=== PATIENT | male | born 1995 | race Caucasian/White ===

== ENCOUNTER 2019-06-01 19:41 | Emergency (ER) | payer BC, SELFPAY ==
[2019-06-01 19:55] VITALS: BP 137/85; PULSE 101; RESP 16; TEMP 37.4; O2SAT 97; BMI 42.0
--- NOTE | 2019-06-01 20:20 | ED_ITS ---
HPI - General Adult General: Chief complaint: General Medical Stated complaint: migraine Time Seen by Provider: 06/01/19 20:20 Source: patient Mode of arrival: ambulatory Limitations: no limitations History of Present Illness: HPI narrative: Patient comes in today with right facial pain and tenderness to the right frontal sinus area. Patient reports some improvement with headache at bedtime when lying flat. Patient appears well. Patient appears in mild pain. Patient reports some improvement with pain using acetaminophen. Associated symptoms: Reports headache(s) Review of Systems General: Reports: 10 or more systems reviewed and unremarkable except in HPI and below Neuro: Reports: headache PFSH ED PFSH: Social History Smoking and tobacco status: current every day smoker Physical Exam Const: COMMON NORMALS: no apparent distress and oriented x3 GENERAL APPEARANCE: cooperative HENMT: COMMON NORMALS: normocephalic, external ears normal, EAC's normal and TM's normal bilaterally HEAD & SCALP: normal to inspection and normocephalic FACE & SINUS: normal facial exam NOSE: mucous membranes and turbinates abnormal erythematous GENERAL EAR: hearing not grossly impaired EXTERNAL EAR: Yes external ears normal EXTERNAL AUDITORY CANAL: EAC's normal TYMPANIC MEMBRANE: TM's normal bilaterally MOUTH: oral and palatal mucosa normal THROAT: posterior oropharynx abnormal erythema Eye: COMMON NORMALS: PERRL and EOMs intact bilaterally PUPIL: Yes PERRL Neck/C-Spine: COMMON NORMALS: full ROM and no lymphadenopathy Lymph: LYMPHATIC: no lymphedema noted Chest: COMMONS NORMALS: inspection of chest normal and palpation of chest normal Resp: COMMON NORMALS: normal respiratory effort and clear to auscultation bilaterally AUSCULTATION: clear to auscultation bilaterally Cardio: COMMON NORMALS: regular rate and regular rhythm RATE: regular rate RHYTHM: regular rhythm GI: COMMON NORMALS: normal to inspection, nondistended, normoactive bowel sounds and non-tender : COMMON NORMALS: Yes no CVA tenderness BLADDER/KIDNEY EXAM: Yes no CVA tenderness Back/Pelvis: COMMON NORMALS: no CVA tenderness and thoracic and lumbar spine normal to inspection Extremity: COMMON NORMALS: normal to inspection GENERAL: No edema Neuro: COMMON NORMALS: oriented x3, moves all extremities and no focal motor deficits Psych: COMMON NORMALS: mental status grossly normal and cooperative Skin: COMMON NORMALS: no rashes or lesions noted GENERAL SKIN EXAM: no rashes or lesions noted Course Vital Signs: Vital signs: Vital Signs Temperature 99.3 F 06/01/19 19:55 Pulse Rate 101 H 06/01/19 19:55 Respiratory Rate 16 06/01/19 19:55 Blood Pressure 137/85 06/01/19 19:55 Pulse Oximetry 97 06/01/19 19:55 MDM - General Adult MDM Narrative: Medical decision making narrative: Patient comes in today with complaints of headache for the last 3 days. Exam notes nasal mucosal swelling and erythema. Sinus pain is noted with palpation of the frontal sinuses. Lungs are clear to auscultation. Abdomen soft nontender. Vital signs are normal. Differential diagnosis includes classic headache syndrome, tension headache, migraine, sinusitis, upper respiratory infection. Exam appears that it is a sinus infection recommend treatment at this time with antibiotics and Flonase spray. Encourage plenty of fluids and medications as directed. Patient was given a dose of dexamethasone and Toradol to help abort the headache. Patient was also given a prescription for naproxen for further headache pain relief. Patient reports understanding of care plan and need for follow-up. Discharge Plan Discharge Patient Disposition: Home, Self-Care Clinical Impression: Acute bacterial rhinosinusitis Condition: Stable Prescriptions: New Augmentin 875-125 mg tablet 1 tab PO BID Qty: 20 RF: 0 Flonase Allergy Relief 50 mcg/actuation spray,suspension 1 spray INTRANASAL BID Qty: 15.8 RF: 0 naproxen 500 mg tablet 500 mg PO BID PRN (Reason: pain, headache) Qty: 20 RF: 0 Discharge Orders: Discharge Order (Routine); Ordered 06/01/19 Ordered By: Demario Rivera Referrals: Shaquille Mckeon MD [Primary Care Provider] - Discharge Diet: Usual diet Discharge Activity: Resume usual activity Patient Instructions: Acute Bacterial Rhinosinusitis (ED) Activity Restrictions/Additional Instructions: Drink plenty of fluids Medications as directed Healthy diet and exercise Follow-up with primary care in three days Return to ER for worsening symptoms, or new concerns Coding Level of Care Code ED Psychiatric Arnp for Luciano Frost Exam Comprehensive
[2019-06-01] MEDS: ketorolac 30 mg/mL INJ IM (20:40)
[2019-06-01] MEDS: dexamethasone 10 mg/mL INJ IM (20:40)
[2019-06-01 21:12] VITALS: BP 127/78; PULSE 94; RESP 16; TEMP 36.9; O2SAT 97
== END 2019-06-01 21:12 | disposition home or self-care (01) ==
PROVIDERS: Emergency Provider Nurse Practitioner Family; Family Provider Family Medicine; PCP Family Medicine
DX: J32.9 Chronic sinusitis, unspecified (principal); B96.89 Other specified bacterial agents as the cause of diseases classified elsewhere; F17.200 Nicotine dependence, unspecified, uncomplicated
CPT/HCPCS: 12345; 96372; 99281; 99283; J1100; J1885

== ENCOUNTER 2020-01-05 16:21 | Outpatient (CLI) | payer OTHER, SELFPAY | END 2020-01-05 16:22 | disposition home or self-care (01) | LOC: SPT 16:21 | PROVIDERS: Family Provider Family Medicine; PCP Family Medicine; Visit Provider Orthopaedic Surgery | DX: Z46.89 Encounter for fitting and adjustment of other specified devices (principal); S93.431D Sprain of tibiofibular ligament of right ankle, subsequent encounter; X58.XXXD Exposure to other specified factors, subsequent encounter | CPT/HCPCS: 97760; L1902 ==

== ENCOUNTER 2020-01-11 15:21 | Outpatient (RCR) | payer OTHER, SELFPAY | END 2020-01-25 23:00 | disposition home or self-care (01) | LOC: SPT 15:21 | PROVIDERS: Referring Provider Orthopaedic Surgery; Visit Provider Orthopaedic Surgery | DX: S93.401D Sprain of unspecified ligament of right ankle, subsequent encounter (principal); X58.XXXA Exposure to other specified factors, initial encounter | CPT/HCPCS: 97110; 97161 ==

== ENCOUNTER → 2020-01-26 10:10 | Outpatient (BNVA) | payer OTHER, SELFPAY | PROVIDERS: Visit Provider Orthopaedic Surgery | DX: M25.571 Pain in right ankle and joints of right foot (principal); S93.409A Sprain of unspecified ligament of unspecified ankle, initial encounter; S93.431A Sprain of tibiofibular ligament of right ankle, initial encounter; X58.XXXA Exposure to other specified factors, initial encounter | CPT/HCPCS: 73610 ==

== ENCOUNTER → 2020-04-22 16:58 | Outpatient (BNVA) | payer SELFPAY | PROVIDERS: Visit Provider Nurse Practitioner | DX: S69.92XA Unspecified injury of left wrist, hand and finger(s), initial encounter (principal); W19.XXXA Unspecified fall, initial encounter; M79.642 Pain in left hand | CPT/HCPCS: 73130 ==

== ENCOUNTER → 2020-04-29 10:16 | Outpatient (BNVA) | payer SELFPAY | PROVIDERS: Visit Provider Nurse Practitioner Family | DX: J02.9 Acute pharyngitis, unspecified (principal) | CPT/HCPCS: 87071; 87880 ==

== ENCOUNTER 2020-06-27 18:13 | Emergency (ER) | payer SELFPAY ==
[2020-06-27 18:26] VITALS: BP 146/68; PULSE 75; RESP 18; TEMP 37.1; O2SAT 98; BMI 35.4
--- NOTE | 2020-06-27 18:27 | XRR_ITS ---
PROCEDURE INFORMATION: Exam: XR Chest Exam date and time: 06/27/2020 6:31 PM Age: 25 years old Clinical indication: Left-sided chest pain; Patient HX: Chest pain, left arm numbness; Additional info: Difficulty breathing, cp TECHNIQUE: Imaging protocol: XR of the chest. Views: Frontal portable upright view of the chest. COMPARISON: CR Chest 2 views* [id number] 10/05/2016 1:24 PM FINDINGS: Lungs: The lungs are clear bilaterally. The pulmonary vasculature is normal. Pleural spaces: No pleural effusion. No pneumothorax. Heart/Mediastinum: The heart is normal in size and contour. Mediastinum: Stable. Bones/joints: Stable. XR/XR chest 1V portable [id number] IMPRESSION: No acute cardiopulmonary abnormality identified.
[2020-06-27 19:13] LABS: Basophils # 0.1 10^3/uL (0.0-0.1); Basophils % 0.5 %; Eosinophils # 0.2 10^3/uL (0.0-0.8); Eosinophils % 2.2 %; Hematocrit 47.2 % (42.0-52.0); Hemoglobin 15.8 g/dL (11.7-16.6); Lymphocytes # 3.7 10^3/uL (0.8-4.8); Lymphocytes % 36.4 %; Mean Corpuscular HGB Conc 33.5 g/dL (30.0-36.0); Mean Corpuscular Hemoglobin 29.7 pg (28.0-34.0); Mean Corpuscular Volume 88.7 fL (80-94); Mean Platelet Volume 9.2 fL (7.4-10.4); Monocytes # 0.5 10^3/uL (0.2-0.9); Monocytes % 4.6 %; Neutrophils # 5.74 10^3/uL (1.8-7.7); Neutrophils % 56.1 %; Nucleated Red Blood Cells % 0 %; Platelet Count 361 10^3/cmm (130-400); Red Blood Count 5.32 10^6/uL (4.1-5.3); Red Cell Distribution Width 12.5 % (12.1-15.1); White Blood Count 10.2 10^3/uL (4.0-10.0)
--- NOTE | 2020-06-27 19:17 | PC.NURSE ---
Report received from AC Almonte and care transferred to VIEVK Ramachandran
--- NOTE | 2020-06-27 19:19 | ED_ITS ---
HPI - Chest Pain General: Chief Complaint: Chest Pain Stated Complaint: SHARP CP TODAY W/DIFF BREATHING NOW DULL PAINS Time Seen by Provider: 06/27/20 18:43 History of Present Illness: HPI narrative: 25-year-old male presents with left-sided chest pain has been going on and off for most of the day. Reports that initially it started out just tenderness to palpation the left side now he said pain with deep breaths. The pain seems to radiate to his low left arm and left neck. Is some mild shortness of breath. He denies any cough, fever, chills. Reports that it was initially sharp earlier today but now is more of a dull pain. Associated symptoms: Deny abdominal pain, dyspnea, fever(s), nausea, palpitations or vomiting Review of Systems Const: Denies: fever(s), chills or malaise Eyes: Denies: change in vision ENMT: Denies: throat pain or mouth pain Card: Reports: chest pain; Denies: palpitations or irregular heart rhythm Resp: Denies: dyspnea GI: Denies: abdominal pain, nausea or vomiting : Denies: flank pain Skin/Breast: Denies: rash Neuro: Denies: headache(s) or dizziness PFSH ED PFSH: Social History Smoking and tobacco status: current every day smoker cigarettes Packs smoked per day: 0.2 [ Other cigarette details: 1-3 cigarette per day ] Alcohol intake: current Alcohol intake frequency: few times a month Physical Exam Const: COMMON NORMALS: no acute distress, patient oriented x3 and no limitations GENERAL APPEARANCE: cooperative Resp: COMMON NORMALS: normal respiratory effort and clear to auscultation bilaterally EFFORT & INSPECTION: Yes able to speak in complete sentences AUSCULTATION: clear to auscultation bilaterally Cardio: COMMON NORMALS: regular rate and regular rhythm RATE: regular rate RHYTHM: regular rhythm GI: COMMON NORMALS: Soft to palpation and non-tender PALPATION: Yes Soft to palpation : COMMON NORMALS: Yes no CVA tenderness BLADDER/KIDNEY EXAM: Yes no CVA tenderness Back/Pelvis: COMMON NORMALS: no CVA tenderness Extremity: COMMON NORMALS: normal to inspection and full ROM Neuro: COMMON NORMALS: patient oriented x3 and no focal motor deficits SENSORIUM/ORIENTATION: Yes alert Psych: COMMON NORMALS: mental status grossly normal, normal affect and speech normal SPEECH: Yes normal speech Skin: COMMON NORMALS: no rashes or lesions noted GENERAL SKIN EXAM: no rashes or lesions noted Course Vital Signs: Vital signs: Vital Signs Temperature 98.8 F 06/27/20 18:26 Pulse Rate 63 06/27/20 19:22 Respiratory Rate 16 06/27/20 19:22 Blood Pressure 136/78 06/27/20 19:22 Pulse Oximetry 98 06/27/20 19:22 MDM - Chest Pain MDM Narrative: Medical decision making narrative: Patient with normal EKG, negative troponin. Patient has been having symptoms all day long. As patient has very specific on the left chest wall. Hurts with deep breath. Patient symptoms seem much more consistent with pleurisy than a cardiac in nature. Discussed with him the need for Tylenol ibuprofen help with pain. Patient stable and will be discharged home Lab Data: Labs: Lab Results 06/27/20 06/27/20 06/27/20 Range/Units 19:10 19:10 19:10 WBC 10.2 H (4.0-10.0) 10^3/ uL RBC 5.32 H (4.1-5.3) 10^6/u L Hgb 15.8 (11.7-16.6) g/dL Hct 47.2 (42.0-52.0) % MCV 88.7 (80-94) fL MCH 29.7 (28.0-34.0) pg MCHC 33.5 (30.0-36.0) g/dL RDW 12.5 (12.1-15.1) % Plt Count 361 (130-400) 10^3/c mm MPV 9.2 (7.4-10.4) fL Neut % (Auto) 56.1 % Lymph % (Auto) 36.4 % Mathews % (Auto) 4.6 % Eos % (Auto) 2.2 % Baso % (Auto) 0.5 % Neut # (Auto) 5.74 (1.8-7.7) 10^3/u L Lymph # (Auto) 3.7 (0.8-4.8) 10^3/u L Mathews # (Auto) 0.5 (0.2-0.9) 10^3/u L Eos # (Auto) 0.2 (0.0-0.8) 10^3/u L Baso # (Auto) 0.1 (0.0-0.1) 10^3/u L Nucleated RBC % (a uto) 0 % Nucleated RBCs # 0.0 /100WBC D-Dimer <= 0.27 (0-0.59) ug/mIFE U Sodium 140 (136-145) mmol/L Potassium 3.8 (3.5-5.1) mmol/L Chloride 103 (98-107) mmol/L Carbon Dioxide 26 (22-29) mmol/L Anion Gap 14.8 (5-19) BUN 9 (6-20) mg/dL Creatinine 0.7 (0.7-1.2) mg/dL GFR Calculation 135.3 H (90-130) mL/min Glucose 77 (65-115) mg/dL Calculated Osmolal ity 287 (285-295) mOsm/k g Calcium 9.4 (8.5-10.5) mg/dL Total Bilirubin 1.4 H (0.15-1.2) mg/dL AST 32 (0-40) U/L ALT 56 H (0-41) U/L Alkaline Phosphata se 121 (40-130) IU/L Troponin T Baselin e (0-15) ng/L Total Protein 7.0 (6.6-8.7) g/dL Albumin 5.0 (3.5-5.2) g/dL Globulin 2.0 (1.3-4.6) g/dL 06/27/20 Range/Units 19:10 WBC (4.0-10.0) 10^3/ uL RBC (4.1-5.3) 10^6/u L Hgb (11.7-16.6) g/dL Hct (42.0-52.0) % MCV (80-94) fL MCH (28.0-34.0) pg MCHC (30.0-36.0) g/dL RDW (12.1-15.1) % Plt Count (130-400) 10^3/c mm MPV (7.4-10.4) fL Neut % (Auto) % Lymph % (Auto) % Mathews % (Auto) % Eos % (Auto) % Baso % (Auto) % Neut # (Auto) (1.8-7.7) 10^3/u L Lymph # (Auto) (0.8-4.8) 10^3/u L Mathews # (Auto) (0.2-0.9) 10^3/u L Eos # (Auto) (0.0-0.8) 10^3/u L Baso # (Auto) (0.0-0.1) 10^3/u L Nucleated RBC % (a uto) % Nucleated RBCs # /100WBC D-Dimer (0-0.59) ug/mIFE U Sodium (136-145) mmol/L Potassium (3.5-5.1) mmol/L Chloride (98-107) mmol/L Carbon Dioxide (22-29) mmol/L Anion Gap (5-19) BUN (6-20) mg/dL Creatinine (0.7-1.2) mg/dL GFR Calculation (90-130) mL/min Glucose (65-115) mg/dL Calculated Osmolal ity (285-295) mOsm/k g Calcium (8.5-10.5) mg/dL Total Bilirubin (0.15-1.2) mg/dL AST (0-40) U/L ALT (0-41) U/L Alkaline Phosphata se (40-130) IU/L Troponin T Baselin e 6 (0-15) ng/L Total Protein (6.6-8.7) g/dL Albumin (3.5-5.2) g/dL Globulin (1.3-4.6) g/dL EKG Data^: EKG 1: Attestation: I personally reviewed and interpreted this EKG as follows: EKG interpretation date: 06/27/20 EKG interpretation time: 18:37 Interpretation: Hr 74, pr 161, sinus, normal ekg Discharge Plan Discharge Condition: Stable Prescriptions: No Action Tylenol 325 mg Tablet 325 - 650 mg PO QID PRN (Reason: Pain) RF: 0 Advil 200 mg Tablet 200 - 400 mg PO Q6H PRN (Reason: Pain) RF: 0 Discharge Orders: Discharge ED (Routine); Ordered 06/27/20 Ordered By: Butch Marion Discharge Diet: Usual diet Discharge Activity: Resume usual activity Patient Instructions: Pleurisy (ED) Coding Level of Care Code ED Senior Air Director for Chg Fwd Exam Comprehensive
[2020-06-27 19:22] VITALS: BP 136/78; PULSE 63; RESP 16; O2SAT 98
[2020-06-27 19:25] LABS: D Dimer <= 0.27 ug/mIFEU (0-0.59)
[2020-06-27 19:37] LABS: Alanine Aminotransferase 56 U/L (0-41); Alkaline Phosphatase 121 IU/L (40-130); Anion Gap 14.8 (5-19); Aspartate Amino Transferase 32 U/L (0-40); Blood Urea Nitrogen 9 mg/dL (6-20); Calcium 9.4 mg/dL (8.5-10.5); Carbon Dioxide 26 mmol/L (22-29); Chloride 103 mmol/L (98-107); Glomerular Filtration Rate 135.3 mL/min (90-130); Glucose 77 mg/dL (65-115); Osmolality Calculated 287 mOsm/kg (285-295); Potassium 3.8 mmol/L (3.5-5.1); Sodium 140 mmol/L (136-145); Total Bilirubin 1.4 mg/dL (0.15-1.2)
[2020-06-27 19:40] LABS: Troponin(5th) Baseline 6 ng/L (0-15)
[2020-06-27] MEDS: ketorolac 30 mg/mL INJ IVP (20:07)
[2020-06-27 20:22] VITALS: BP 149/69; PULSE 71; RESP 16; O2SAT 96
== END 2020-06-27 20:22 | disposition home or self-care (01) ==
PROVIDERS: Emergency Provider Student in an Organized Health Care Education/Training Program
DX: R07.9 Chest pain, unspecified (principal); F17.210 Nicotine dependence, cigarettes, uncomplicated
CPT/HCPCS: 71045; 80053; 84484; 85025; 85378; 96374; 99284; J1885

== ENCOUNTER 2022-02-01 20:59 | Emergency (ER) | payer SELFPAY ==
[2022-02-01 21:03] VITALS: BP 137/84; PULSE 78; RESP 16; TEMP 36.6; O2SAT 99
--- NOTE | 2022-02-01 21:06 | ECG_ITS ---
[facility] Test Date: 2022-02-01 Pat Name: Rajendra Phipps Department: Room: Gender: Male [employer]: : 1995 Requested By: Anna Valle Order Number: [id number] Davon MD: Gian Antonio M.D. Measurements Intervals [place] Rate: 77 P: 30 MD: 166 QRS: 41 QRSD: 94 T: 37 QT: 350 QTc: 397 Interpretive Statements SINUS RHYTHM Compared to ECG 10/05/2016 14:31:40 Sinus bradycardia no longer present Electronically Signed On 02-02-2022 11:10:03 [employer]NAGER by Gian Antonio M.D. [id number]
--- NOTE | 2022-02-01 21:12 | XRR_ITS ---
PROCEDURE INFORMATION: Exam: XR Chest Exam date and time: 02/01/2022 10:51 PM Age: 26 years old Clinical indication: Pain; Chest pressure; Additional info: Cp TECHNIQUE: Imaging protocol: Radiologic exam of the chest. Views: 1 view. COMPARISON: CR XR chest 1V portable [id number] 06/27/2020 6:38 PM FINDINGS: Lungs: Unremarkable. No consolidation. Pleural spaces: Unremarkable. No pleural effusion. No pneumothorax. Heart/Mediastinum: Unremarkable. No cardiomegaly. Bones/joints: Unremarkable. XR/XR chest 1V portable [id number] IMPRESSION: No acute findings.
[2022-02-01 21:57] LABS: Basophils # 0.1 10^3/uL (0.0-0.1); Basophils % 0.7 %; Eosinophils # 0.2 10^3/uL (0.0-0.8); Eosinophils % 2.2 %; Hematocrit 46.2 % (42.0-52.0); Hemoglobin 15.6 g/dL (11.7-16.6); Lymphocytes # 4.4 10^3/uL (0.8-4.8); Lymphocytes % 41.6 %; Mean Corpuscular HGB Conc 33.8 g/dL (30.0-36.0); Mean Corpuscular Hemoglobin 30.4 pg (28.0-34.0); Mean Corpuscular Volume 90.1 fl (80-94); Mean Platelet Volume 9.3 fL (7.4-10.4); Monocytes # 0.6 10^3/uL (0.2-0.9); Monocytes % 6.1 %; Neutrophils # 5.15 10^3/uL (1.8-7.7); Neutrophils % 49.1 %; Nucleated Red Blood Cells % 0 %; Platelet Count 345 10^3/cmm (130-400); Red Blood Count 5.13 10^6/uL (4.1-5.3); Red Cell Distribution Width 12.6 % (12.1-15.1); White Blood Count 10.5 10^3/uL (4.0-10.0)
[2022-02-01 22:13] LABS: Troponin(5th) Baseline 6 ng/L (0-15)
[2022-02-01 22:18] LABS: Alanine Aminotransferase 80 U/L (0-41); Albumin Level 4.5 g/dL (3.5-5.2); Alkaline Phosphatase 112 U/L (40-130); Anion Gap 13.1 (5-19); Aspartate Amino Transferase 32 U/L (0-40); Blood Urea Nitrogen 9 mg/dL (6-20); Calcium 9.5 mg/dL (8.5-10.5); Carbon Dioxide 25 mmol/L (22-29); Chloride 105 mmol/L (98-107); Creatinine Clr Calc Pharmacy 216.3609; Globulin 2.1 g/dL (1.3-4.6); Glomerular Filtration Rate 134.3 mL/min (90-130); Glucose 96 mg/dL (65-115); Osmolality Calculated 287 mOsm/kg (285-295); Potassium 4.1 mmol/L (3.5-5.1); Sodium 139 mmol/L (136-145); Total Bilirubin 0.7 mg/dL (0.15-1.2); Total Protein 6.6 g/dL (6.6-8.7)
[2022-02-01] MEDS: lidocaine 2% viscous 15 ML, aluminum-mag hydrox-simethicon 30 ML, sucralfate oral liq 1 GM PO (23:15)
[2022-02-01 23:20] LABS: Urine Appearance Cloudy (CLEAR); Urine Color Yellow (Yellow); pH Urine 8 (5-7)
[2022-02-01 23:21] LABS: Add Urine Culture? No; Add Urine Microscopic? YES; Amorphous Sediment Urine 4+ /hpf; Bacteria Urine TRACE /hpf; Bilirubin Urine Neg (Negative); Blood Urine Neg (Negative); Glucose Urine UA Norm (Normal); Ketones Urine Negative (Negative); Leukocyte Esterase Urine Negative (Negative); Mucus Urine 2+ /hpf; Nitrate Urine Negative (Negative); Protein Urine Neg (Negative); RBC Urine 0-4 /hpf (0-2); Squamous Epithelial Cell Urine 0-4 /hpf (0-5); Sulfosalicylic Acid Urine Negative (Negative); Urobilinogen Urine 1 mg/dL (Negative); WBC Urine 0-4 /hpf (0-5)
[2022-02-01 23:33] LABS: Influenza A by IFA negative (Negative); Influenza B by IFA negative (Negative); SARS Covid-2 Antigen negative (Negative)
[2022-02-01 23:50] LABS: Troponin 5 2HR Delta 0 ABS# (0-10)
--- NOTE | 2022-02-02 00:09 | ED_ITS ---
HPI - Chest Pain General: Chief Complaint: Chest Pain Stated Complaint: CP Time Seen by Provider: 02/01/22 21:06 History of Present Illness: 26 yo male patient presents to [facility] er with chest pain and back pain x 2 weeks. Pt states this pain is intermittent and comes and goes. Pt c/o cough but denies nay fever or SOB. Pt states he has acid reflux but other than that is is healthy. Associated symptoms: Deny abdominal pain, diaphoresis, dyspnea, fever(s), nausea, palpitations, syncope or vomiting Review of Systems Const: Denies: fever(s), chills, body aches, change in appetite, change in weight, fatigue, malaise or diaphoresis Eyes: Denies: change in vision, blurry vision, blind spots, photophobia, eye discomfort, eye discharge, eye redness, floaters or seeing flashes ENMT: Denies: throat pain, uvular edema, enlarged tonsils, odynophagia, hoarseness, mouth pain, swelling of lips/tongue, oral sores, bleeding gums, dental pain, dry mouth, ear or mastoid pain, ear discharge, change in hearing, tinnitus, disequilibrium, nasal discharge, nasal congestion, post nasal drip or sinus pain Card: Reports: chest pain; Denies: palpitations, irregular heart rhythm, edema, swelling of feet/ankles, lightheadedness, syncope, pre-syncope, dyspnea on exertion, orthopnea, leg pain with exertion or acrocyanosis Resp: Denies: dyspnea, productive cough, non-productive cough, wheezing, stridor, pain on inspiration, change in phlegm color, hemoptysis or chest congestion GI: Denies: abdominal pain, nausea, vomiting, hematemesis, dysphagia, diarrhea, constipation, GI cramping, change in bowel habits or rectal pain : Denies: flank pain, dysuria, urinary frequency, urinary urgency, urinary hesitancy or hematuria Musc: Reports: back pain; Denies: neck pain, extremity pain, extremity swelling, joint pain, joint swelling, joint redness, joint warmth or deformity Skin/Breast: Denies: rash, pruritus, erythema, sores, new lesions, changes in skin color or dry skin Neuro: Denies: headache(s), numbness in extremities, weakness in extremities, sensory changes, lack of coordination, difficulty walking, frequent falls, dizziness, vertigo, confusion, behavioral changes, Slurred speech present, difficulty communicating thoughts or seizure-like activity Psych: Denies: anxiety, depression, suicidal ideation or homicidal ideation Endo: Denies: polyuria, polydipsia, tired all the time, cold intolerance, excessive sweating, flushing, hot flashes or heat intolerance Larry/Lymph: Denies: easy bruising, easy bleeding, petechiae, purpura, enlarged lymph nodes or tender lymph nodes All/Imm: Denies: urticaria, throat swelling, tongue swelling, facial swelling, acute wheezing or itchy eyes PFSH ED PFSH: Social History Smoking and tobacco status: current every day smoker cigarettes Packs smoked per day: 0.2 [ Other cigarette details: 1-3 cigarette per day] Alcohol intake: current Alcohol intake frequency: few times a month Physical Exam Const: COMMON NORMALS: no acute distress, patient oriented x3, healthy appearing, alert and well nourished GENERAL APPEARANCE: cooperative, comfortable, well kempt and well developed; not ill appearing ORIENTATION/CONSCIOUSNESS: Yes awake, Yes oriented to person, Yes oriented to place and Yes oriented to time HENMT: COMMON NORMALS: normocephalic, atraumatic, hearing grossly normal bilaterally, external ears normal, EAC's normal, TM's normal bilaterally, Normal external nose present, Normal nasal mucous membranes and turbinates present and moist oral mucous membranes HEAD & SCALP: normal to inspection, normocephalic and atraumatic FACE & SINUS: normal facial exam, sinuses nontender and face symmetric NOSE: Normal external nose present, Normal nares present, Normal nasal mucous membranes and turbinates present, No nasal discharge present and Abnormal external nose present EXTERNAL EAR: Yes external ears normal and Yes mastoids normal EXTERNAL AUDITORY CANAL: EAC's normal TYMPANIC MEMBRANE: TM's normal bilaterally MOUTH: Normal oral and palatal mucosa present, lip normal, tongue normal and Normal salivary glands and ducts present THROAT: no uvular edema Eye: COMMON NORMALS: Equal, round and reactive pupils present, EOMs intact b ilaterally, conjunctivae normal, no scleral icterus and no papilledema GENERAL EYE: appearance normal, both eyes and all related structures EYELID: eyelids normal CONJUNCTIVA: Yes conjunctivae normal SCLERA: sclerae normal CORNEA: Yes corneas normal PUPIL: Yes Equal, round and reactive pupils present DIRECT OPHTHALMOSCOPY: Yes no papilledema Neck/C-Spine: COMMON NORMALS: full ROM, no lymphadenopathy, supple, no meningeal signs, no JVD and Thyroid normal GENERAL: Yes normal visual inspection and Yes trachea midline THYROID: Thyroid normal CERVICAL SPINE: Yes cervical ROM normal Lymph: LYMPHATIC: no lymphadenopathy noted and no lymphedema noted Chest: COMMONS NORMALS: normal inspection of the chest and normal palpation of entire chest wall Resp: COMMON NORMALS: normal respiratory effort, No retractions, No use of accessory muscles and clear to auscultation bilaterally EFFORT & INSPECTION: Yes able to speak in complete sentences and Yes symmetric chest movement AUSCULTATION: clear to auscultation bilaterally Cardio: COMMON NORMALS: no JVD, regular rate and regular rhythm RATE: regular rate RHYTHM: regular rhythm GI: COMMON NORMALS: Normal to inspection, nondistended, normoactive bowel sounds present, Soft to palpation, non-tender, No hepatosplenomegaly present, no masses and no bruits INSPECTION: Yes normal to inspection AUSCULTATION: Yes normoactive bowel sounds PALPATION: Yes Soft to palpation and Yes No hepatosplenomegaly present PERCUSSION: normal to percussion RECTAL EXAM: Yes deferred : COMMON NORMALS: Yes no CVA tenderness BLADDER/KIDNEY EXAM: Yes no CVA tenderness Back/Pelvis: COMMON NORMALS: no CVA tenderness, thoracic and lumbar spine normal to inspection, no thoracic nor lumbar tenderness, thoraco-lumbar ROM normal and straight leg raise negative bilaterally THORACIC SPINE/UPPER BACK: Yes normal to inspection LUMBAR SPINE/LOWER BACK: Yes normal to inspection Extremity: COMMON NORMALS: normal to inspection, full ROM and capillary refill normal GENERAL: Yes normal exam except as noted Neuro: COMMON NORMALS: patient oriented x3, CN's II-XII intact bilaterally, moves all extremities, no focal motor deficits, no sensory deficits noted, deep tendon reflexes 2+ bilaterally and gait normal SENSORIUM/ORIENTATION: Yes alert, Yes oriented to person, Yes oriented to place and Yes oriented to time MENINGEAL SIGNS: Yes no meningeal signs CRANIAL NERVES: Yes CN normal except as noted SPEECH: speech normal GAIT: Yes Normal gait present SENSORY EXAM: Yes extremities MOTOR EXAM: 5/5 motor strength present throughout Psych: COMMON NORMALS: mental status grossly normal, Normal thought process present, cooperative, normal affect, speech normal, activity/motor behavior normal, denies hallucinations, denies homicidal ideation and denies suicidal ideation APPEARANCE: Yes grossly normal and Yes well kempt ATTITUDE: Yes calm ACTIVITY/MOTOR BEHAVIOR: Yes appropriate eye contact SPEECH: Yes normal speech THOUGHT PROCESS: Normal thought process present THOUGHT CONTENT: Yes Normal thought content present ATTENTION/CONCENTRATION: Yes attention grossly intact MEMORY/COGNITION: Yes memory grossly intact INSIGHT: Good insight present (Psych) JUDGEMENT: Good judgement present (Psych) Skin: COMMON NORMALS: no rashes or lesions noted, no wounds, turgor normal, no jaundice, no petechiae and no mottling GENERAL SKIN EXAM: no rashes or lesions noted and turgor normal Course Vital Signs: Vital signs: Vital Signs Temperature 97.8 F 02/01/22 21:03 Pulse Rate 78 02/01/22 21:03 Respiratory Rate 16 02/01/22 21:03 Blood Pressure 137/84 02/01/22 21:03 Pulse Oximetry 99 02/01/22 21:03 Oxygen Delivery Me thod 02/01/22 21:03 MDM - Chest Pain Medical Decision Making Patient is well appearing non toxic and in no acute distress. 26 yo male patient presents to [facility] er with chest pain and back pain x 2 weeks. pt states his chest pain radiates into upper back. pt denies any injury or trauma. Pt states this pain is intermittent and comes and goes. Pt c/o cough but denies nay fever or SOB. Pt states he has acid reflux but other than that is is healthy. Pt was given a gi cocktail and had resolution of symptoms. Labs do not reveal any concerning symotms. I will place patient on protonix and have him follow up with PCP. Pts EKG does not reveal any st elevation or depression nd trop is WNL this making cardiac ischemia unlikely. Lab Data 02/01/22 21:51 02/01/22 21:51 Radiology Impressions Chest X-Ray 02/01/22 21:12 IMPRESSION: No acute findings. Laboratory Results WBC 10.5 10^3/uL (4.0-10.0) H 02/01/22 21:51 RBC 5.13 10^6/uL (4.1-5.3) 02/01/22 21:51 Hgb 15.6 g/dL (11.7-16.6) 02/01/22 21:51 Hct 46.2 % (42.0-52.0) 02/01/22 21:51 MCV 90.1 fl (80-94) 02/01/22 21:51 MCH 30.4 pg (28.0-34.0) 02/01/22 21:51 MCHC 33.8 g/dL (30.0-36.0) 02/01/22 21:51 RDW 12.6 % (12.1-15.1) 02/01/22 21:51 Plt Count 345 10^3/cmm (130-400) 02/01/22 21:51 MPV 9.3 fL (7.4-10.4) 02/01/22 21:51 Neut % (Auto) 49.1 % 02/01/22 21:51 Lymph % (Auto) 41.6 % 02/01/22 21:51 [place] % (Auto) 6.1 % 02/01/22 21:51 Eos % (Auto) 2.2 % 02/01/22 21:51 Baso % (Auto) 0.7 % 02/01/22 21:51 Neut # (Auto) 5.15 10^3/uL (1.8-7.7) 02/01/22 21:51 Lymph # (Auto) 4.4 10^3/uL (0.8-4.8) 02/01/22 21:51 [place] # (Auto) 0.6 10^3/uL (0.2-0.9) 02/01/22 21:51 Eos # (Auto) 0.2 10^3/uL (0.0-0.8) 02/01/22 21:51 Baso # (Auto) 0.1 10^3/uL (0.0-0.1) 02/01/22 21:51 Nucleated RBC % (auto) 0 % 02/01/22 21:51 Nucleated RBCs # 0.0 /100WBC 02/01/22 21:51 Sodium 139 mmol/L (136-145) 02/01/22 21:51 Potassium 4.1 mmol/L (3.5-5.1) 02/01/22 21:51 Chloride 105 mmol/L (98-107) 02/01/22 21:51 Carbon Dioxide 25 mmol/L (22-29) 02/01/22 21:51 Anion Gap 13.1 (5-19) 02/01/22 21:51 BUN 9 mg/dL (6-20) 02/01/22 21:51 Creatinine 0.7 mg/dL (0.7-1.2) 02/01/22 21:51 GFR Calculation 134.3 mL/min (90-130) H 02/01/22 21:51 Glucose 96 mg/dL (65-115) 02/01/22 21:51 Calculated Osmolality 287 mOsm/kg (285-295) 02/01/22 21:51 Calcium 9.5 mg/dL (8.5-10.5) 02/01/22 21:51 Total Bilirubin 0.7 mg/dL (0.15-1.2) 02/01/22 21:51 AST 32 U/L (0-40) 02/01/22 21:51 ALT 80 U/L (0-41) H 02/01/22 21:51 Alkaline Phosphatase 112 U/L (40-130) 02/01/22 21:51 Troponin T Baseline 6 ng/L (0-15) 02/01/22 21:51 Troponin T 120 Minute 6.00 ng/L (0-15) 02/01/22 23:22 Delta Troponin T 0 ABS# (0-10) 02/01/22 23:22 Total Protein 6.6 g/dL (6.6-8.7) 02/01/22 21:51 Albumin 4.5 g/dL (3.5-5.2) 02/01/22 21:51 Globulin 2.1 g/dL (1.3-4.6) 02/01/22 21:51 Urine Color Yellow (Yellow) 02/01/22 23:00 Urine Appearance Cloudy (CLEAR) A 02/01/22 23:00 Urine pH 8 (5-7) H 02/01/22 23:00 Ur Specific [place] 1.010 (1.005-1.030) 02/01/22 23:00 Urine Protein Neg (Negative) 02/01/22 23:00 Urine Glucose (UA) Norm (Normal) 02/01/22 23:00 Urine Ketones Negative (Negative) 02/01/22 23:00 Urine Blood Neg (Negative) 02/01/22 23:00 Urine Nitrate Negative (Negative) 02/01/22 23:00 Urine Bilirubin Neg (Negative) 02/01/22 23:00 Prot Sulfosalicylic Acd Negative (Negative) 02/01/22 23:00 Urine Urobilinogen 1 mg/dL (Negative) H 02/01/22 23:00 Ur Leukocyte Esterase Negative (Negative) 02/01/22 23:00 Urine RBC 0-4 /hpf (0-2) H 02/01/22 23:00 Urine WBC 0-4 /hpf (0-5) H 02/01/22 23:00 Ur Squamous Epith Cells 0-4 /hpf (0-5) H 02/01/22 23:00 Amorphous Sediment 4+ /hpf 02/01/22 23:00 Urine Bacteria Trace /hpf (NONE) 02/01/22 23:00 Urine Mucus 2+ /hpf 02/01/22 23:00 Influenza Type A Ag negative (Negative) 02/01/22 23:00 Influenza Type B Ag negative (Negative) 02/01/22 23:00 SARS-CoV-2 Ag (Rapid) negative (Negative) 02/01/22 23:00 Discharge Plan Discharge Patient Disposition: Home Clinical Impression: Chest pain due to GERD Condition: Stable Prescriptions: New Protonix 40 mg tablet,delayed release (DR/EC) 40 mg PO DAILY 28 Days Qty: 90 0RF No Action sulfamethoxazole-trimethoprim [Bactrim DS] 800-160 mg tablet 1 tab PO BID 10 Days Qty: 20 0RF Tylenol 325 mg Tablet 325 - 650 mg PO QID PRN (Reason: Pain) Advil 200 mg Tablet 200 - 400 mg PO Q6H PRN (Reason: Pain) Discharge Orders: Discharge ED (Routine); Ordered 02/02/22 Ordered By: Anna Valle Discharge Diet: Advance as tolerated Discharge Activity: Increase activity as tolerated Patient Instructions: Opioid Safety, Pain Management Activity Restrictions/Additional Instructions: Please take medications as prescribed Please avoid spicy or fatty fried foods Please return to the ER with any worsening of pain or symptoms Coding Level of Care Code ED Resin Painter for Luciano Frost
[2022-02-02 01:09] VITALS: BP 133/70; PULSE 74; RESP 18; O2SAT 99
== END 2022-02-02 01:09 | disposition home or self-care (01) ==
PROVIDERS: Emergency Provider Registered Nurse
DX: K21.9 Gastro-esophageal reflux disease without esophagitis (principal); Z20.822 Contact with and (suspected) exposure to COVID-19; F17.210 Nicotine dependence, cigarettes, uncomplicated
CPT/HCPCS: 36415; 71045; 80053; 81001; 84484; 85025; 87426; 87804; 93005; 99285

== ENCOUNTER 2022-03-04 23:53 | Inpatient (IN) | payer SELFPAY ==
[2022-03-05 00:02] VITALS: BP 139/90; PULSE 103; RESP 16; TEMP 36.7; O2SAT 98; BMI 36.6
[2022-03-05 01:23] LABS: Basophils # 0.1 10^3/uL (0.0-0.1); Basophils % 0.6 %; Eosinophils # 0.1 10^3/uL (0.0-0.8); Eosinophils % 0.8 %; Hematocrit 47.3 % (42.0-52.0); Lymphocytes # 2.6 10^3/uL (0.8-4.8); Lymphocytes % 24.1 %; Mean Corpuscular HGB Conc 33.8 g/dL (30.0-36.0); Mean Corpuscular Hemoglobin 30.6 pg (28.0-34.0); Mean Corpuscular Volume 90.4 fl (80-94); Mean Platelet Volume 9.1 fL (7.4-10.4); Monocytes # 0.5 10^3/uL (0.2-0.9); Monocytes % 4.5 %; Neutrophils % 69.7 %; Nucleated Red Blood Cells % 0 %; Platelet Count 343 10^3/cmm (130-400); Red Blood Count 5.23 10^6/uL (4.1-5.3); Red Cell Distribution Width 12.4 % (12.1-15.1); White Blood Count 10.6 10^3/uL (4.0-10.0)
[2022-03-05 01:35] LABS: Amphetamines Screen Urine Negative (Negative); Barbiturates Screen Urine Negative (Negative); Benzodiazepines Screen Urine Negative (Negative); Cocaine Screen Urine Negative (Negative); Opiate Screen Urine Negative (Negative); PCP Screen Urine Negative (Negative); THC Screen Urine Negative (Negative)
[2022-03-05 01:40] LABS: Alanine Aminotransferase 119 U/L (0-41); Albumin Level 4.4 g/dL (3.5-5.2); Alkaline Phosphatase 115 U/L (40-130); Aspartate Amino Transferase 48 U/L (0-40); Blood Urea Nitrogen 10 mg/dL (6-20); Calcium 9.4 mg/dL (8.5-10.5); Carbon Dioxide 24 mmol/L (22-29); Chloride 102 mmol/L (98-107); Globulin 2.4 g/dL (1.3-4.6); Glomerular Filtration Rate 160.4 mL/min (90-130); Glucose 108 mg/dL (65-115); Osmolality Calculated 280 mOsm/kg (285-295); Sodium 135 mmol/L (136-145); Total Bilirubin 0.5 mg/dL (0.15-1.2); Total Protein 6.8 g/dL (6.6-8.7)
[2022-03-05 01:43] LABS: Acetaminophen < 5.0 ug/mL (10-30); Alcohol Level < 10 mg/dL (0-10); Salicylate < 0.3 mg/dL (3-10)
[2022-03-05 01:46] LABS: Add Urine Culture? No; Add Urine Microscopic? YES; Bacteria Urine TRACE /hpf; Bilirubin Urine Neg (Negative); Blood Urine Neg (Negative); Glucose Urine UA Norm (Normal); Ketones Urine 1+ (Negative); Leukocyte Esterase Urine Trace (Negative); Mucus Urine 3+ /hpf; Nitrate Urine Negative (Negative); Protein Urine Neg (Negative); RBC Urine 0-4 /hpf (0-2); Squamous Epithelial Cell Urine 0-4 /hpf (0-5); Urine Appearance Clear (CLEAR); Urine Color Yellow (Yellow); Urobilinogen Urine 1 mg/dL (Negative); WBC Urine 0-4 /hpf (0-5); pH Urine 5 (5-7)
[2022-03-05 02:35] VITALS: BP 146/87; PULSE 83; RESP 18; O2SAT 97
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
[2022-03-05 03:10] VITALS: BP 132/76; PULSE 77; RESP 18; TEMP 36.6; O2SAT 95
[2022-03-05] MEDS: hyDROXYzine 25 mg Capsule 50 MG PO (03:47)
[2022-03-05 06:00] VITALS: RESP 18
[2022-03-05] MEDS: nicotine 2 mg Gum BUCCAL (09:44)
[2022-03-05] MEDS: pantoprazole DR 40 mg Tablet PO (09:44)
--- NOTE | 2022-03-05 13:22 | W.ED.PSYCHS ---
HPI - Psych General: Chief Complaint: Psychiatric Symptoms Stated Complaint: SI, psych eval Time Seen by Provider: 03/05/22 00:07 Source: patient History of Present Illness: 26yo male with no hx of psychiatric hospitalization or treatment for depression. He says that back in Apr or May he attempted suicide by handing with a belt in his closet but the closet shelf broke. Of late he has been stressed over finances, growing more depressed, waking up multiple times a night. He had suicidal thoughts this evening, and thought about using his pistol. He came here instead for help. He denies recent medical illness otherwise. MD complaint: suicidal ideation and feels depressed Onset (ago): day(s) Duration: constant and getting worse History of same: Yes Relieving factors: none Exacerbating factors: none Context: significant life stressor Associated symptoms: Reports depression and suicidal ideation; Deny auditory hallucinations or visual hallucinations Treatments prior to arrival: none If self harm: admits thoughts of self harm Review of Systems Const: Denies: fever(s), chills or body aches Eyes: Denies: change in vision Card: Denies: chest pain or palpitations Resp: Denies: dyspnea, productive cough, non-productive cough or wheezing GI: Denies: abdominal pain, nausea, vomiting, diarrhea or hematochezia Skin/Breast: Denies: rash Neuro: Denies: headache(s), weakness in extremities, dizziness or confusion Psych: Reports: depression and suicidal ideation; Denies: visual hallucinations or auditory hallucinations PFSH ED PFSH: Social History Smoking and tobacco status: current every day smoker cigarettes Packs smoked per day: 0.2 [ Other cigarette details: 1-3 cigarette per day] Alcohol intake: current Alcohol intake frequency: few times a month Physical Exam Const: GENERAL APPEARANCE: cooperative; not ill appearing and not frail appearing HENMT: COMMON NORMALS: normocephalic, atraumatic and Normal external nose present HEAD & SCALP: normocephalic and atraumatic FACE & SINUS: normal facial exam and face symmetric NOSE: Normal external nose present Eye: COMMON NORMALS: Equal, round and reactive pupils present and EOMs intact bilaterally PUPIL: Yes Equal, round and reactive pupils present Neck/C-Spine: GENERAL: Yes trachea midline Chest: CHEST: Yes Symmetrical chest wall rise Resp: COMMON NORMALS: normal respiratory effort, No retractions, No use of accessory muscles and clear to auscultation bilaterally AUSCULTATION: clear to auscultation bilaterally Cardio: COMMON NORMALS: regular rate and regular rhythm RATE: regular rate RHYTHM: regular rhythm GI: COMMON NORMALS: Normal to inspection, nondistended, normoactive bowel sounds present Extremity: COMMON NORMALS: no pedal edema Neuro: [place] COMA SCALE: document GCS findings [place] coma scale eye opening: Spontaneous [place] coma scale verbal response: Orientated [place] coma scale motor response: Obey commands [place] coma scale total score: 15 SENSORY EXAM: Yes extremities (intact) Psych: COMMON NORMALS: speech normal SPEECH: Yes normal speech Skin: COMMON NORMALS: no rashes or lesions noted GENERAL SKIN EXAM: no rashes or lesions noted Course Vital Signs: Vital signs: Vital Signs Temperature 97.9 F 03/05/22 03:10 Pulse Rate 77 03/05/22 03:10 Respiratory Rate 18 03/05/22 06:00 Blood Pressure 132/76 03/05/22 03:10 Pulse Oximetry 95 03/05/22 03:10 Oxygen Delivery Me thod 03/05/22 02:52 MDM - Psych Medical Decision Making Labs not remarkable. He is clearly medically stable. He is willing to be admitted for inpatient treatment. Admssion orders written after speaking with psychiatry and his acceptance. Lab Data 03/05/22 01:15 03/05/22 01:15 Laboratory Results WBC 10.6 10^3/uL (4.0-10.0) H 03/05/22 01:15 RBC 5.23 10^6/uL (4.1-5.3) 03/05/22 01:15 Hgb 16.0 g/dL (11.7-16.6) 03/05/22 01:15 Hct 47.3 % (42.0-52.0) 03/05/22 01:15 MCV 90.4 fl (80-94) 03/05/22 01:15 MCH 30.6 pg (28.0-34.0) 03/05/22 01:15 MCHC 33.8 g/dL (30.0-36.0) 03/05/22 01:15 RDW 12.4 % (12.1-15.1) 03/05/22 01:15 Plt Count 343 10^3/cmm (130-400) 03/05/22 01:15 MPV 9.1 fL (7.4-10.4) 03/05/22 01:15 Neut % (Auto) 69.7 % 03/05/22 01:15 Lymph % (Auto) 24.1 % 03/05/22 01:15 [place] % (Auto) 4.5 % 03/05/22 01:15 Eos % (Auto) 0.8 % 03/05/22 01:15 Baso % (Auto) 0.6 % 03/05/22 01:15 Neut # (Auto) 7.40 10^3/uL (1.8-7.7) 03/05/22 01:15 Lymph # (Auto) 2.6 10^3/uL (0.8-4.8) 03/05/22 01:15 [place] # (Auto) 0.5 10^3/uL (0.2-0.9) 03/05/22 01:15 Eos # (Auto) 0.1 10^3/uL (0.0-0.8) 03/05/22 01:15 Baso # (Auto) 0.1 10^3/uL (0.0-0.1) 03/05/22 01:15 Nucleated RBC % (auto) 0 % 03/05/22 01:15 Nucleated RBCs # 0.0 /100WBC 03/05/22 01:15 Sodium 135 mmol/L (136-145) L 03/05/22 01:15 Potassium 4.0 mmol/L (3.5-5.1) 03/05/22 01:15 Chloride 102 mmol/L (98-107) 03/05/22 01:15 Carbon Dioxide 24 mmol/L (22-29) 03/05/22 01:15 Anion Gap 13.0 (5-19) 03/05/22 01:15 BUN 10 mg/dL (6-20) 03/05/22 01:15 Creatinine 0.6 mg/dL (0.7-1.2) L 03/05/22 01:15 GFR Calculation 160.4 mL/min (90-130) H 03/05/22 01:15 Glucose 108 mg/dL (65-115) 03/05/22 01:15 Calculated Osmolality 280 mOsm/kg (285-295) L 03/05/22 01:15 Calcium 9.4 mg/dL (8.5-10.5) 03/05/22 01:15 Total Bilirubin 0.5 mg/dL (0.15-1.2) 03/05/22 01:15 AST 48 U/L (0-40) H 03/05/22 01:15 ALT 119 U/L (0-41) H 03/05/22 01:15 Alkaline Phosphatase 115 U/L (40-130) 03/05/22 01:15 Total Protein 6.8 g/dL (6.6-8.7) 03/05/22 01:15 Albumin 4.4 g/dL (3.5-5.2) 03/05/22 01:15 Globulin 2.4 g/dL (1.3-4.6) 03/05/22 01:15 Urine Color Yellow (Yellow) 03/05/22:28 Urine Appearance Clear (CLEAR) 03/05/22: Urine pH 5 (5-7) 03/05/22 00:28 Ur Specific [place] 1.020 (1.005-1.030) 03/05/22: Urine Protein Neg (Negative) 03/05/22: Urine Glucose (UA) Norm (Normal) 03/05/22: Urine Ketones 1+ (Negative) H 03/05/22:28 Urine Blood Neg (Negative) 03/05/22: Urine Nitrate Negative (Negative) 03/05/22: Urine Bilirubin Neg (Negative) 03/05/22: Urine Urobilinogen 1 mg/dL (Negative) H 03/05/22 00:28 Ur Leukocyte Esterase Trace (Negative) H 03/05/22 00:28 Urine RBC 0-4 /hpf (0-2) H 03/05/22 00:28 Urine WBC 0-4 /hpf (0-5) H 03/05/22:28 Ur Squamous Epith Cells 0-4 /hpf (0-5) H 03/05/22 00:28 Amorphous Sediment Not Reportable 03/05/22: Urine Bacteria Trace /hpf (NONE) 03/05/22: Urine Mucus 3+ /hpf 03/05/22 00:28 Salicylates < 0.3 mg/dL (3-10) L 03/05/22 01:15 Urine Opiates Screen Negative ng/mL (Negative) 03/05/22 00:28 Acetaminophen < 5.0 ug/mL (10-30) L 03/05/22 01:15 Ur Barbiturates Screen Negative ng/mL (Negative) 03/05/22 00:28 Ur Phencyclidine Scrn Negative ng/mL (Negative) 03/05/22 00:28 Ur Amphetamines Screen Negative ng/mL (Negative) 03/05/22 00:28 U Benzodiazepines Scrn Negative ng/mL (Negative) 03/05/22 00:28 Urine Cocaine Screen Negative ng/mL (Negative) 03/05/22 00:28 U Marijuana (THC) Screen Negative ng/mL (Negative) 03/05/22 00:28 Ethyl Alcohol < 10 mg/dL (0-10) 03/05/22 01:15 Discharge Plan Discharge Patient Disposition: Admitted As Inpatient Admit Provider: Lloyd Peguero Clinical Impression: Suicidal ideation Condition: Stable Coding Level of Care Code ED Cosmetic Surgeon for Luciano Frost
[2022-03-05] MEDS: cetylpyridinium Lozenge 1 EACH MUCOUS MEM ×3 (13:32→18:46)
[2022-03-05 14:00] VITALS: BP 133/84; PULSE 73; RESP 18; TEMP 36.6; O2SAT 98
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
[2022-03-05] MEDS: fluoxetine 20 mg Capsule PO (16:05)
[2022-03-05 19:43] VITALS: BP 143/78; PULSE 83; RESP 16; TEMP 36.8; O2SAT 98
[2022-03-05] MEDS: nicotine 4 mg lozenge MUCOUS MEM (20:15)
[2022-03-06 05:39] VITALS: BP 113/84; PULSE 98; RESP 18; TEMP 36.6; O2SAT 98
[2022-03-06] MEDS: cetylpyridinium Lozenge 1 EACH MUCOUS MEM ×2 (06:54→13:17)
[2022-03-06] MEDS: pantoprazole DR 40 mg Tablet PO (07:42)
[2022-03-06] MEDS: fluoxetine 20 mg Capsule PO (07:43)
[2022-03-06] MEDS: nicotine 4 mg lozenge MUCOUS MEM (09:35)
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
[2022-03-06 13:20] VITALS: BP 113/84; PULSE 98; RESP 18; TEMP 36.6; O2SAT 98
== END 2022-03-06 13:33 | disposition home or self-care (01) | DRG 881 ==
LOC: ER 03-05 01:49 → NP 03-05 02:18
PROVIDERS: Admitting Provider Psychiatry & Neurology Psychiatry; Emergency Provider Emergency Medicine; Visit Provider Psychiatry & Neurology Psychiatry
DX: F32.9 Major depressive disorder, single episode, unspecified (principal); R45.851 Suicidal ideations; F17.210 Nicotine dependence, cigarettes, uncomplicated; F10.90 Alcohol use, unspecified, uncomplicated; F12.90 Cannabis use, unspecified, uncomplicated; Z81.8 Family history of other mental and behavioral disorders
CPT/HCPCS: 80053; 80306; 80307; 81001; 85025; 97150; 97165; 99285

== ENCOUNTER 2023-12-11 19:24 | Emergency (ER) | payer SELFPAY ==
[2023-12-11 19:32] VITALS: BP 154/85; PULSE 92; RESP 18; TEMP 36.7; O2SAT 97
--- NOTE | 2023-12-11 19:59 | ED_ITS ---
HPI - Headache General: Chief Complaint: Headache Stated Complaint: Headace, N/V Time Seen by Provider: 12/11/23 19:37 History of Present Illness: 28-year-old man who presents emergency r oom with headache. He says he has headaches sometimes but not usually this bad. He had nausea and vomiting. Headache is around the top of his head and goes down his neck. Photophobia and phonophobia are present. No altered mental status. No focal motor deficits. Related Data Home Medications Medication Instructions Recorded Confirmed acetaminophen 325 mg tablet 325 - 650 mg PO QID PRN Pain 06/27/20 03/05/22 (Tylenol) ibuprofen 200 mg tablet (Advil) 200 - 400 mg PO Q6H PRN Pain 06/27/20 03/05/22 pantoprazole 40 mg tablet,delayed 40 mg PO DAILY 03/05/22 03/05/22 release (Protonix) Previous Rx's Medication Instructions Recorded fluoxetine 20 mg capsule 20 mg PO DAILY 30 days #30 caps 03/06/22 Allergies Allergy/AdvReac Type Severity Reaction Status Date / Time No Known Allergies Allergy Verified 12/11/23 19:37 Review of Systems Narrative: Constitutional symptoms: Negative except as documented in HPI. Skin symptoms: Negative except as documented in HPI. Eye symptoms: Negative except as documented in HPI. ENMT symptoms: Negative except as documented in HPI. Respiratory symptoms: Negative except as documented in HPI. Cardiovascular symptoms: Negative except as documented in HPI. Gastrointestinal symptoms: Negative except as documented in HPI. Genitourinary symptoms: Negative except as documented in HPI. Musculoskeletal symptoms: Negative except as documented in HPI. Neurologic symptoms: Negative except as documented in HPI. Psychiatric symptoms: Negative except as documented in HPI. Endocrine symptoms: Negative except as documented in HPI. PFSH ED PFSH: Social History Smoking and tobacco/nicotine status: current every day tobacco/nicotine user cigarettes Packs smoked per day: 0.2 [ Other cigarette details: 1-3 cigarette per day] Alcohol intake: current Alcohol intake frequency: few times a month Substance/Drug Use: never Physical Exam Narrative: EXAM NARRATIVE: General: Alert, no acute distress. Skin: Warm, dry. Head: Normocephalic, atraumatic. Neck: Supple, trachea midline. Eye: Extraocular movements are intact. Ears, nose, mouth and throat: mucosa moist. Cardiovascular: Regular, Normal peripheral perfusion. Respiratory: Lungs are clear to auscultation, respirations are non-labored, breath sounds are equal, Symmetrical chest wall expansion. Gastrointestinal: Soft, Nontender, Non distended Musculoskeletal: Normal ROM, no deformity. Neurological: Alert and oriented, No focal neurological deficit observed. Psychiatric: Cooperative, appropriate mood & affect. Course Vital Signs: Vital signs: Vital Signs Temperature 98.1 F 12/11/23 19:32 Pulse Rate 92 12/11/23 19:32 Respiratory Rate 18 12/11/23 19:32 Blood Pressure 154/85 12/11/23 19:32 Pulse Oximetry 97 12/11/23 19:32 MDM - Headache Medical Decision Making Assessment and plan: headache - 50 mg IV Benadryl - 30 mg IV Toradol - 10 mg IV Reglan - 8 mg IV Benadryl - 60 mg IV Norflex - 1 L normal saline bolus - Discharged home - Discussed plan with patient. Answered any questions. - Evaluation and treatment of this problem were appropriate in the emergency setting. . No radiology studies performed this visit Discharge Plan Discharge Patient Disposition: Home Clinical Impression: Headache Condition: Stable Prescriptions: No Action acetaminophen [Tylenol] 325 mg Tablet 325 - 650 mg PO QID PRN (Reason: Pain) ibuprofen [Advil] 200 mg Tablet 200 - 400 mg PO Q6H PRN (Reason: Pain) Protonix 40 mg Tablet,Delayed Release (Dr/Ec) 40 mg PO DAILY fluoxetine 20 mg Capsule 20 mg PO DAILY 30 Days Qty: 30 1RF Discharge Orders: Discharge ED (Routine); Ordered 12/11/23 Ordered By: Kassie Abbott Discharge Diet: Usual diet Discharge Activity: Resume usual activity Patient Instructions: Acute Headache (ED) Activity Restrictions/Additional Instructions: Thank you for choosing [facility] for your healthcare needs today. Please realize this is an emergency room and that we are providing you with a medical screening exam and this may not be complete and all inclusive of all the testing and or work up that you may need to determine your ailment or severity of your illness. You have been screened and evaluated and felt safe for discharge. Health conditions do change or evolve sometimes and as such it is important that you follow up with your Primary Doctor to be re checked, 3-5 days is a general good time frame for follow up. You are always welcome to return to the ED for re assessment if your symptoms are worsening or you have new concerns Coding Level of Care Code ED Elevated Work Platform Operator for Luciano Frost
[2023-12-11] MEDS: ketorolac 30 mg/mL INJ IVP (20:30)
[2023-12-11] MEDS: diphenhydrAMINE 50 mg/mL SDV 1mL IVP (20:30)
[2023-12-11] MEDS: ondansetron 2 mg/ML SDV 2 mL 4 MG IVP (20:30)
[2023-12-11] MEDS: metoclopramide 5 mg/mL SDV 2 mL 10 MG IVP (20:30)
[2023-12-11] MEDS: sodium chloride 0.9% 1,000 ML 999 ML IV (20:30)
[2023-12-11] MEDS: orphenadrine 30 mg/mL Inj 2 mL 60 MG IVP (20:30)
[2023-12-11 20:33] VITALS: BP 112/93; PULSE 87; RESP 16; O2SAT 98
[2023-12-11 21:03] VITALS: BP 121/91; PULSE 98; O2SAT 99
== END 2023-12-11 21:04 | disposition home or self-care (01) ==
PROVIDERS: Emergency Provider Emergency Medicine
DX: R51.9 Headache, unspecified (principal); F17.210 Nicotine dependence, cigarettes, uncomplicated
CPT/HCPCS: 96374; 96375; 99284; J1200; J1885; J2360; J2405; J2765; J7030

== ENCOUNTER 2024-05-14 16:55 | Emergency (ER) | payer SELFPAY ==
--- NOTE | 2024-05-14 16:56 | XRR_ITS ---
PROCEDURE INFORMATION: Exam: XR Chest Exam date and time: 05/14/2024 5:09 PM Age: 29 years old Clinical indication: Shortness of breath; Additional info: SOB TECHNIQUE: Imaging protocol: Radiologic exam of the chest. Views: 1 view. COMPARISON: CR XR chest 1V portable [id number] 02/01/2022 10:51 PM FINDINGS: Lungs: Unremarkable. No consolidation. Pleural spaces: Unremarkable. No pleural effusion. No pneumothorax. Heart/Mediastinum: Unremarkable. No cardiomegaly. Bones/joints: Unremarkable. XR/XR chest 1V portable [id number] IMPRESSION: No acute findings.
[2024-05-14 17:09] VITALS: BP 147/83; PULSE 82; RESP 18; TEMP 36.7; O2SAT 98; BMI 40.6
--- NOTE | 2024-05-14 17:09 | ECG_ITS ---
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 Measurements Intervals [place] Rate: 77 P: 32 WY: 140 QRS: 58 QRSD: 104 T: 42 QT: 350 QTc: 396 Interpretive Statements SINUS RHYTHM Compared to ECG 02/01/2022 21:06:43 No significant changes Electronically Signed On 05-16-2024 19:36:42 SOLAR MANAGER by Gian Antonio M.D. [id number]
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
[2024-05-14] MEDS: methocarbamol 750 mg Tablet 1500 MG PO (17:46)
[2024-05-14] MEDS: ketorolac 60 mg/2 mL INJ IM (17:47)
[2024-05-14 18:19] VITALS: BP 134/76; PULSE 78; RESP 18; O2SAT 97
== END 2024-05-14 18:20 | disposition home or self-care (01) ==
PROVIDERS: Emergency Provider Emergency Medicine
DX: S39.012A Strain of muscle, fascia and tendon of lower back, initial encounter (principal); V89.2XXA Person injured in unspecified motor-vehicle accident, traffic, initial encounter; F17.210 Nicotine dependence, cigarettes, uncomplicated
CPT/HCPCS: 71045; 72072; 72100; 93005; 96372; 99284; J1885